=== PATIENT | male | born 1970 | race Caucasian/White ===

== ENCOUNTER 2024-10-14 06:30 | Emergency (ER) | payer OTHER, SELFPAY ==
[2024-10-14 06:38] VITALS: BP 138/82; PULSE 77; RESP 18; TEMP 36.4; O2SAT 98; BMI 28.0
--- NOTE | 2024-10-14 07:11 | ED_ITS ---
HPI - General Adult General Chief complaint: Back Injury/Pain Stated complaint: back pain Time Seen by Provider: 10/14/24 07:06 History of Present Illness HPI narrative: Pt here for 1 week of non?traumatic back pain. Pain radiates into R buttock and R leg. Worse w/ movement. No loss of bowel or bladder. Has been using aleve at home. Is able to stand and pivot onto bed w/o difficulty. Denies urinary symptoms. 54-year-old man presenting to the emergency department with concern of low back or buttock pain on the right. Does not recall a specific injury. Movement, sitting, rotation worsens. Has this pain radiating really in the buttock down the back of the leg to the knee. Can reproduce his pain by palpation of his mid right buttock. Trying treatment with Aleve. No loss of bowel or bladder control. Related Data Home Medications ?Medication ?Instructions ?Recorded ?Confirmed No Known Home Medications 10/14/2409/27 Allergies Allergy/AdvReac Type Severity Reaction Status Date / Time No Known Drug Allergies Allergy Verified 10/14/24 06:40 Review of Systems Status of ROS: Reports: 6 or more systems reviewed and unremarkable except as noted in History and below PFSH PFS Social History Smoking Status: Never smoker Do you use any of these nicotine containing products: None Second hand tobacco smoke exposure: No How often do you have a drink containing alcohol: monthly or less How many standard drinks containing alcohol do you have on a typical day: 1 or 2 How often do you have six or more drinks on one occasion: Never AUDIT-C Alcohol total score: 1 Non-prescribed substance use: denies use service: No Exam Narrative: Exam Narrative: Pleasant. Appears little tired. Seated a little rotated to the left. Skin is warm and dry. I do not see any swellings, erythema, rashes. No pain to palpation about the back over the SI joint. Reproducible pain to palpation of the mid right buttock. Straight leg raise is not exactly positive. He has good strength in extremities. Well-perfused. Const: Vital Signs, click to edit/add: Vital Signs - 24 hr 10/14/24 06:38 Temperature 97.6 F Pulse Rate [Pulse Oximeter] 77 Respiratory Rate 18 Blood Pressure [Ri ght Upper Arm] 138/82 Pulse Oximetry 98 Oxygen Delivery Me thod Room Air Documenting provider has reviewed patient's vital signs: yes Course Vital Signs Vital signs: Initial Vital Signs Temperature 97.6 F 10/14/24 06:38 Temperature Source Temporal Artery Scan 10/14/24 06:38 Pulse Rate 77 10/14/24 06:38 Pulse Rhythm Regular 10/14/24 06:38 Pulse Strength 3+ Normal 10/14/24 06:38 Respiratory Rate 18 10/14/24 06:38 Blood Pressure 138/82 10/14/24 06:38 Blood Pressure Mean 100 10/14/24 06:38 Blood Pressure Position Sitting 10/14/24 06:38 Pulse Oximetry 98 10/14/24 06:38 Oxygen Delivery Method Room Air 10/14/24 06:38 Vital Signs Temperature 97.6 F 10/14/24 06:38 Pulse Rate 77 10/14/24 06:38 Respiratory Rate 18 10/14/24 06:38 Blood Pressure 138/82 10/14/24 06:38 Pulse Oximetry 98 10/14/24 06:38 Oxygen Delivery Method Room Air 10/14/24 06:38 Temperature 97.6 F 10/14/24 06:38 Pulse Rate 78 10/14/24 08:11 Respiratory Rate 20 10/14/24 08:11 Blood Pressure 122/82 10/14/24 08:11 Pulse Oximetry 98 10/14/24 06:38 Oxygen Delivery Method Room Air 10/14/24 06:38 Medical Decision Making MDM Narrative Medical decision making narrative: Does not feel like he needs immediate treatment here in the ER for his pain but would like treatment plan, recommendations. Appears to be demonstrating some degree of sciatica. I think less likely it is coming from his lumbar spine although this is possible. Piriformis syndrome is possible as well. No red flags although admittedly atraumatic onset might be concerning as well. X-rays would seem to be of low yield and MRI not available tonight. I would monitor for improvement with outpatient management. See patient discharge plan for further discussion As I said, sciatica is not necessarily a very specific diagnosis but treatments are initially similar whether the problem begins in your low back or in the hip/buttock area. I am prescribing a course of prednisone and [place] if needed from [facility]. [place] is an opiate that contains 5 mg of hydrocodone and 325 mg of acetaminophen. Either of these medications can be combined with ibuprofen or naproxen. Generally can also take up to 1000 mg of acetaminophen per dose. See handout on stretches, exercises that you can start. Herniated disc and piriformis syndrome are in the differential for you. Please also make a follow-up in primary care to continue further treatment or evaluation if necessary but in particular to potentially receive a referral to physical therapy. Discharge Plan Discharge Clinical Impression: Sciatica Patient Disposition: Home w/ Parent or Adult Condition: Stable Additional Instructions: As I said, sciatica is not necessarily a very specific diagnosis but treatments are initially similar whether the problem begins in your low back or in the hip/buttock area. I am prescribing a course of prednisone and [place] if needed from [facility]. [place] is an opiate that contains 5 mg of hydrocodone and 325 mg of acetaminophen. Either of these medications can be combined with ibuprofen or naproxen. Generally can also take up to 1000 mg of acetaminophen per dose. See handout on stretches, exercises that you can start. Herniated disc and piriformis syndrome are in the differential for you. Please also make a follow-up in primary care to continue further treatment or evaluation if necessary but in particular to potentially receive a referral to physical therapy. Prescriptions: No Action No Known Home Medications Stand Alone Forms: [employer] Info Instructions
--- OUTSIDE RECORDS SUMMARY | 2024-10-14 08:08 | XMS_ITS | Clinical Summary ---
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 Immunizations Immunization Administration Dates Next Due Tdap 06/23/2017 Family History Medical History Relation Name Comments Other Mother lung injury Cancer No Family History Relation Name Status Comments Father Mother (Age 42) Social History Tobacco Use Types Packs/Day Years Used Date Smoking Tobacco: Never Smokeless Tobacco: Never Tobacco Cessation:Counseling Given: Yes Alcohol Use Standard Drinks/Week Comments Yes 4 (1 standard drink = 0.6 oz pur e alcohol) occasional PHQ-2 Answer Date Recorded PHQ-2 Score 0 05/01/2018 Social Connections Answer Date Recorded Frequency of Communication with Friends and Fami ly Not on file 12/06/2021 Financial Resource Strain Answer Date R ecorded Difficulty of Paying Living Expenses Not on file 02/27/2021 Difficulty of Paying Living Expenses Not on file 02/27/2021 Sex and Gender Information Value Date Recorded Sex Assigned at Not on file 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 Gender Identity Not on file Sexual Orientation Not on file 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 Not on file Not on file Not on file Obstetrics History Last Filed Vital Signs Vital Sign Reading Time Taken Comments Blood Pressure 122/80 12/06/2021 6:27 PM CDT Pulse 64 12/06/2021 6:27 PM CDT Temperature 36.9 C (98.4 F) 09/30/2019 1:45 PM CDT Respiratory Rate 20 09/30/2019 1:45 PM CDT Oxygen Saturation 93% 09/30/2019 1:45 PM CDT Inhaled Oxygen Concentration - - Weight 107.5 kg (237 lb) 12/06/2021 6:27 PM CDT Height 185.4 cm (6' 1) 12/06/2021 6:27 PM CDT Body Mass Index 31.27 12/06/2021 6:27 PM CDT Plan of Treatment Health Maintenance Due Date Last Done Comments HIV for age 15-65 04/27/1986 Hepatitis C screening for ag e 18-79 04/27/1989 Hepatitis B series for 19+ ( 1 of 3 - 19+ 3-dose series) 04/27/1990 Colonoscopy through age 75 04/27/2016 Depression screening for age 12+ 06/23/2018 06/24/19 18, 08/19/2016 Pneumococcal series for age 50+ (1 of 1 - PCV) 04/27/2021 Zoster (shingles) series for age 50+ (1 of 2) 04/27/2021 Lipids for age 45-75 06/24/2021 06/24/2016, 05/03/19 15 BMI (ht and wt on same day) for age 18+ 12/06/2022 12/06/2021, 05/06/2019, 12/01/2017, Additional history exists COVID-19 vaccine series ( - 2023- season) 2023 Influenza Vaccine (#1) 2024 Tetanus booster 06/24/2027 06/23/2017 Procedures Procedure Name Priority Date/Time Associated Diagnosis Comments LIPID PANEL W REFLEX MEASURED LDL Routine 06/24/2016 11:54 AM CDT Well adult exam from Last 3 Months or Most Recently Relevant to Health Maintenance Results * (ABNORMAL) LIPID PANEL W REFLEX MEASURED LDL (06/24/2016 11:54 AM CDT) CHOLESTEROL,TOTAL 192 100 - 199 mg/dL 06/24/2016 12:43 PM CDT [facility] TRIGLYCERIDES 140 <150 mg/dL 06/24/2016 12:43 PM CDT [facility] HDL CHOLESTEROL 46 >40 mg/dL 7 12:43 PM CDT [facility] NON-HDL CHOLESTEROL 146(H) <145 mg/dl 06/24/2016 12:43 PM CDT [facility] CHOL/HDL RATIO 4.17 <4.50 06/24/2016 12:43 PM CDT [facility] LDL CHOLESTEROL 118 <=130 mg/dL 06/24/2016 12:43 PM CDT [facility] PATIENT STATUS FASTING 06/24/2016 12:43 PM CDT [facility] Blood BLOOD SPECIMEN / Unknown Venipuncture / Unknown 06/24/2016 11:54 AM CDT 06/24/2016 11:56 AM CDT Grady Galeano MD CHEMISTRY Final Resul t Performing Organization Address City/State/[facility] Co de Phone Number [facility] [address] [place] [address] [facility] [address] [place] [address], from Last 3 Months or Most Recently Relevant to Health Maintenance Insurance [employer] Care Teams Mink Slicer Relationship Specialty Start Date End Date Clinic, [address] [address] PCP - General 02/14/17
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
[2024-10-14 08:11] VITALS: BP 122/82; PULSE 78; RESP 20
== END 2024-10-14 08:12 | disposition home or self-care (01) ==
LOC: ED 08:06
PROVIDERS: Emergency Provider Family Medicine
DX: M54.31 Sciatica, right side (principal)
CPT/HCPCS: 99283; 99284